=== PATIENT | male | born 1970 | race Two or more races ===

== ENCOUNTER 2021-12-25 15:36 | Outpatient (CLI) | payer OTHER | END 2021-12-25 15:41 | disposition home or self-care (01) | LOC: LAB 15:36 | PROVIDERS: ATTEND Radiology Diagnostic Radiology | DX: M54.15 Radiculopathy, thoracolumbar region (principal) ==

== ENCOUNTER 2022-01-15 07:27 | Outpatient (CLI) | payer OTHER | END 2022-01-15 07:42 | disposition home or self-care (01) | LOC: TOM 07:27 | PROVIDERS: ATTEND Internal Medicine Hematology & Oncology | DX: M54.15 Radiculopathy, thoracolumbar region (principal); M54.50 Low back pain, unspecified ==

== ENCOUNTER 2022-01-29 09:15 | Outpatient (CLI) | payer OTHER | END 2022-01-29 09:19 | disposition home or self-care (01) | LOC: SONOGRAMA 09:15 | PROVIDERS: ATTEND Internal Medicine Hematology & Oncology | DX: C64.1 Malignant neoplasm of right kidney, except renal pelvis (principal) ==

== ENCOUNTER 2022-02-05 07:24 | Outpatient (CLI) | payer OTHER | END 2022-02-05 08:48 | disposition home or self-care (01) | LOC: NUCLEAR 07:24 | PROVIDERS: ATTEND Internal Medicine Hematology & Oncology | DX: C64.1 Malignant neoplasm of right kidney, except renal pelvis (principal); C79.51 Secondary malignant neoplasm of bone | CPT/HCPCS: 78812; A9552 ==

== ENCOUNTER 2022-02-27 07:15 | Outpatient (CLI) | payer OTHER | END 2022-02-27 07:19 | disposition home or self-care (01) | LOC: LAB 07:15 | PROVIDERS: ATTEND Internal Medicine Hematology & Oncology | DX: D64.9 Anemia, unspecified (principal); M51.15 Intervertebral disc disorders with radiculopathy, thoracolumbar region; E03.8 Other specified hypothyroidism; E78.5 Hyperlipidemia, unspecified; N40.0 Benign prostatic hyperplasia without lower urinary tract symptoms; N39.0 Urinary tract infection, site not specified; C64.1 Malignant neoplasm of right kidney, except renal pelvis; M16.9 Osteoarthritis of hip, unspecified; R79.1 Abnormal coagulation profile ==